=== PATIENT | male | born 1955 | race Caucasian/White ===

== ENCOUNTER 2023-01-06 08:44 | Inpatient (IN) ==
--- NOTE | 2023-01-06 09:12 | XRay Report ---
XR chest 1V portable HISTORY: 67 years-old Male Chest pain, nonspecific COMPARISON: 12/17/2022 TECHNIQUE: AP view of the chest FINDINGS: Cardiomegaly. Emphysema with chronic interstitial coarsening. Left lung lesions measuring up to 3.4 c m within the left upper lung are redemonstrated. No pneumothorax, pleural effusion or overt pulmonary edema. Degenerative changes of the shoulders and spine. Right subclavian Gxnrik-d-Kbow catheter. IMPRESSION: 1. No acute process of the chest. 2. Emphysema with chronic interstitial coarsening. 3. Left lung lesions are better depicted on the comparison PET/CT. ACT 112: Negative or not required by law. The above report was generated using voice recognition software. It may contain grammatical, syntax o r spelling errors. Electronically signed by: Luis Carlos Magallon M.D. 01/06/2023 9:10 AM
[2023-01-06] MEDS ORDERED: SODIUM CHLORIDE 0.9% 500 ML IV ONE (09:23)
[2023-01-06 09:31] LABS: Basophils # (auto) 0.06 K/uL (0-0.2); Basophils % (auto) 0.6 %; Eosinophils % (auto) 3.9 %; Hemoglobin 10.9 g/dl (14.0-18.0); Immature Granulocytes # (auto) 0.07 K/uL (0.01-0.20); Immature Granulocytes % (auto) 0.7 %; Lymphocytes # (auto) 0.81 K/uL (1.2-3.4); Lymphocytes % (auto) 7.8 %; Mean Corpuscular Volume 87.8 fL (80.0-100.0); Mean Platelet Volume 10.7 fL (9.4-12.4); Monocytes # (auto) 0.88 K/uL (0.11-0.59); Monocytes % (auto) 8.5 %; Neutrophils % (auto) 78.5 %; Platelet Count 276 K/uL (130-400); RDW Coefficient of Variation 13.6 % (11.5-14.5); RDW Standard Deviation 43.8 fL (36.4-46.3); Red Blood Count 3.76 M/uL (4.70-6.10); White Blood Count 10.32 K/ul (4.8-10.8)
--- NOTE | 2023-01-06 09:31 | Emergency Department Note ---
Impression & Plan Bradycardia, Hypomagnesemia, Anemia ED Provider Note NAME: KEVIN OVALLE AGE: 67 SEX: M : 1955 ARRIVES VIA: Walk-In INFORMANT: Patient, ED PROVIDER(S): Delfino Manzo DO CHIEF COMPLAINT: bradycardia HPI: The patient is a 67-year-old male who presented to the emergency department for an evaluation of low pulse rate and low blood pressure. The patient was scheduled for an outpatient biopsy of his kidney today. While he was at IR he was noted to have low pulse rate and low blood pressure. The patient was sent to the emergency department for further evaluation. He was started on some pain medications recently but otherwise no new medications or no changes to his chronic medications. ROS: See above HPI for pertinent positives & negatives. A total of 10 systems reviewed and were otherwise negative. The patient is a 67-year-old male who presented to the emergency department for an evaluation of slow heart rate. The patient was scheduled for a PAST MEDICAL HISTORY: See Below PAST SURGICAL HISTORY: See Below FAMILY HISTORY: See Below SOCIAL HISTORY: See Below HOME MEDICATIONS: See Below ALLERGIES: See Below VITALS: See Below PHYSICAL EXAMINATION: GENERAL: Patient is awake alert in no acute distress patient is resting comfortably and showing no signs of anxiety EYES: The conjunctivae are clear. The pupils are round and reactive. EARS, NOSE, MOUTH AND THROAT: The nose is without any evidence of any deformity. NECK: The neck is nontender and supple. RESPIRATORY: Normal respiratory effort is noted there is no evidence of wheezing rhonchi or rales CARDIOVASCULAR: Bradycardic and regular heart sounds were noted to auscultation. There is no definite murmur. GASTROINTESTINAL: The abdomen is soft. Abdomen is nontender. MUSCULOSKELETAL/EXTREMITIES: There is no evidence of gross deformity full range of motion is noted in the hips and shoulders. SKIN: Skin was warm and dry. Trace pedal edema was noted bilaterally. NEUROLOGIC: Patient is awake alert and oriented x3 MEDICAL DECISION MAKING: The patient is a 67-year-old male who presented to the emergency department from radiology because of low heart rate. The patient was scheduled for renal biopsy. This was held because the patient's vital signs were unstable. He was noted to have low blood pressure as well as low pulse rate. The patient had monitor strips with him when he arrived. He did have a couple episodes where it looked like he could be in a second-degree block. Mostly he was sinus bradycardia. I discussed the patient's laboratory and radiographic studies with him. He was treated with magnesium replacement. Ultimately the patient did not have significant improvement of his pulse rate he did have some episodes where he would Kump in the 60s but he would keep dropping down in the 40s again. I am concerned this could represent an underlying cardiac issue. For this reason I discussed his condition with the on-call [facility] group. They have agreed to evaluate the patient in the emergency department for further management and disposition. Triage Nursing notes reviewed. Prior medical records reviewed Vital Signs: reviewed and remarkable for bradycardia and initial hypotension. Differential diagnosis: Infection, dehydration, metabolic abnormality, hypo/hyperglycemia, electrolyte disturbance, anemia, hypoxia, cardiac sources, intracerebral event, toxicologic, neurologic, as well as other pathologies. ER treatment provided: See below Diagnostics interpreted by me: ECG: EKG was obtained in the emergency department. My interpretation is sinus bradycardia at 45 bpm. PACs were noted. No acute ST segment abnormalities were noted. Low voltage was noted. This was compared to a tracing from December 09, 2022. The rate has slowed however no significant changes were noted otherwise. Cardiac Monitoring: An order was placed for continuous cardiac monitoring. The monitor shows a rate of 43 bpm with sinus bradycardia. Laboratory studies: As stated above and show below. Imaging studies: See below. Radiographic imaging was reviewed by myself Consultation(s): I discussed this case with Melissa who is on-call for the [facility] group. Past Med/Surg History Medical History COPD (chronic obstructive pulmonary disease) COVID-19 Elevated cholesterol Emphysema/COPD Lung cancer Surgical History Hx of appendectomy 1968 Family History Mother Alzheimer disease Diabetes Father Lung disease Emphysema and black lung Social History Smoking Status: Current every day smoker Tobacco Type: Cigarettes Age Started Using Tobacco: 13; packs per day: 5; Cigarettes Per Day: currently 8 cigarettes per day; Hx Alcohol Use: Yes Alcohol type: hard liquor Alcohol Intake Frequency: 4 or More x per/Week Alcohol Intake Frequency Comment: each evening Hx Substance Use: No Preferred Language: Latvian Communication Ability: Effective Visual Impairment: Partially Limited Hearing Ability: Normal Asbestos Cloth Inspector Required: No Beliefs That Will Affect Care: None Current Living Situation: Spouse Current Living Situation Comment: has a home in [place], will be staying with SO during treatment current occupational status: retired 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 100 mcg-umeclid 1 inh inhalation DAILY 07/08/22 01/06/23 62.5 mcg-vilant 25 mcg inhalat.powder (Trelegy Ellipta) tamsulosin 0.4 mg capsule (Flomax) 0.4 mg PO DAILY 07/08/22 01/06/23 aspirin 81 mg tablet,delayed 81 mg PO DAILY 12/09/22 01/06/23 release atorvastatin 40 mg tablet 40 mg PO QAM 12/09/22 01/06/23 sildenafil 50 mg tablet 50 mg PO DIRECTED PRN Erectile 12/09/22 01/06/23 Dysfunction fentanyl 25 mcg/hr transdermal 25 mcg transdermal Q72H 01/06/23 01/06/23 patch Previous Rx's Medication Instructions Recorded oxycodone-acetaminophen 5 mg-325 1 tab PO Q6H PRN pain #14 tabs 12/09/22 mg tablet (Percocet) Results & Data (ED) Vital Signs Vital Signs - 24 hr 01/06/23 08:52 01/06/23 09:10 01/06/23 09:10 Temperature 36.4 C L Temperature Source Temporal Artery Scan Pulse Rate 51 L 46 L Pulse Rate [Right Finger] Pulse Rhythm Regular Regular Pulse Strength Normal Respiratory Rate 18 20 Respiratory Effort / Characteristics Non-Labored Spontaneous Respiratory Depth Normal Respiratory Pattern Regular Blood Pressure 99/54 L Blood Pressure [Right Arm] Blood Pressure Mean 69 Blood Pressure Mean [Right Arm] Blood Pressure Position Sitting Pulse Oximetry 97 96 Oxygen Delivery Method Room Air Room Air Room Air Sepsis Recent Fever Within 48 Hours No Sepsis New/Unexplained Change in Mental Status No Sepsis Action Taken by Nursing No Action Required 01/06/23 09:25 01/06/23 09:56 01/06/23 09:59 Temperature Temperature Source Pulse Rate 49 L Pulse Rate [Right Finger] 48 L Pulse Rhythm Pulse Strength Respiratory Rate 22 Respiratory Effort / Characteristics Non-Labored Respiratory Depth Normal Respiratory Pattern Blood Pressure Blood Pressure [Right Arm] 119/60 Blood Pressure Mean Blood Pressure Mean [Right Arm] 79 Blood Pressure Position Pulse Oximetry 96 Oxygen Delivery Method Room Air Room Air Sepsis Recent Fever Within 48 Hours Sepsis New/Unexplained Change in Mental Status Sepsis Action Taken by Nursing 01/06/23 10:44 01/06/23 11:12 01/06/23 11:12 Temperature Temperature Source Pulse Rate 43 L Pulse Rate [Right Finger] 43 L Pulse Rhythm Pulse Strength Respiratory Rate Respiratory Effort / Characteristics Respiratory Depth Respiratory Pattern Blood Pressure Blood Pressure [Right Arm] Blood Pressure Mean Blood Pressure Mean [Right Arm] Blood Pressure Position Pulse Oximetry 95 Oxygen Delivery Method Room Air Room Air Sepsis Recent Fever Within 48 Hours Sepsis New/Unexplained Change in Mental Status Sepsis Action Taken by [facility] Medications Current Medication List: was personally reviewed by me Laboratory Data Attestation: I reviewed the patient's lab results. 01/06/23 09:05 01/06/23 09:05 Lab Results 01/06/23 01/06/23 01/06/23 Range/Units 09:05 09:05 09:05 WBC 10.32 (4.8-10.8) K/ul RBC 3.76 L (4.70-6.10) M/uL Hgb 10.9 L (14.0-18.0) g/dl Hct 33.0 L (42.0-52.0) % MCV 87.8 (80.0-100.0) fL MCH 29.0 (25.0-34.0) pg MCHC 33.0 (32.0-36.0) g/dL RDW Std Deviation 43.8 (36.4-46.3) fL RDW Coeff of Adrian 13.6 (11.5-14.5) % Plt Count 276 (130-400) K/uL MPV 10.7 (9.4-12.4) fL Immature Gran % (Auto) 0.7 % Neut % (Auto) 78.5 % Lymph % (Auto) 7.8 % [place] % (Auto) 8.5 % Eos % (Auto) 3.9 % Baso % (Auto) 0.6 % Neut # (Auto) 8.10 H (1.40-6.50) K/uL Lymph # (Auto) 0.81 L (1.2-3.4) K/uL [place] # (Auto) 0.88 H (0.11-0.59) K/uL Eos # (Auto) 0.40 (0-0.50) K/uL Baso # (Auto) 0.06 (0-0.2) K/uL Immature Gran # (Auto) 0.07 (0.01-0.20) K/uL Sodium 134 L (136-145) mmol/L Potassium 3.8 (3.5-5.1) mmol/L Chloride 100 (98-107) mmol/L Carbon Dioxide 29 (21-32) mmol/L Anion Gap 5 (3-11) BUN 16 (6-23) mg/dl Creatinine 0.97 (0.6-1.4) mg/dl Est Cr Clr Drug Dosing 75.0 ml/min Est GFR ( Amer) 93.9 ml/min Est GFR (Non-Af Amer) 81.0 ml/min BUN/Creatinine Ratio 16.5 (10-20) Glucose 104 H (70-99(Fasting)) mg/dl Calcium 11.9 H (8.6-10.3) mg/dl Magnesium 1.6 L (1.7-2.4) mg/dl Total Bilirubin 0.4 (0.2-1.0) mg/dl AST 16 (13-39) U/L ALT 9 (7-52) U/L Alkaline Phosphatase 94 (34-104) U/L Troponin I High Sens 6.1 (0-20) pg/ml Total Protein 6.6 (6.0-8.3) gm/dl Albumin 3.5 (3.4-5.0) gm/dl Globulin 3.1 (2.5-4.0) gm/dl Albumin/Globulin Ratio 1.1 (0.9-2) Lipase 9 L (11-82) U/L Procalcitonin (0-0.5) ng/ml TSH 1.115 (0.300-4.500) uIu/ml Lyme Disease IgG Ab (Negative) Lyme Disease IgM Ab (Negative) 01/06/23 01/06/23 Range/Units 09:05 09:29 WBC (4.8-10.8) K/ul RBC (4.70-6.10) M/uL Hgb (14.0-18.0) g/dl Hct (42.0-52.0) % MCV (80.0-100.0) fL MCH (25.0-34.0) pg MCHC (32.0-36.0) g/dL RDW Std Deviation (36.4-46.3) fL RDW Coeff of Adrian (11.5-14.5) % Plt Count (130-400) K/uL MPV (9.4-12.4) fL Immature Gran % (Auto) % Neut % (Auto) % Lymph % (Auto) % [place] % (Auto) % Eos % (Auto) % Baso % (Auto) % Neut # (Auto) (1.40-6.50) K/uL Lymph # (Auto) (1.2-3.4) K/uL [place] # (Auto) (0.11-0.59) K/uL Eos # (Auto) (0-0.50) K/uL Baso # (Auto) (0-0.2) K/uL Immature Gran # (Auto) (0.01-0.20) K/uL Sodium (136-145) mmol/L Potassium (3.5-5.1) mmol/L Chloride (98-107) mmol/L Carbon Dioxide (21-32) mmol/L Anion Gap (3-11) BUN (6-23) mg/dl Creatinine (0.6-1.4) mg/dl Est Cr Clr Drug Dosing ml/min Est GFR ( Amer) ml/min Est GFR (Non-Af Amer) ml/min BUN/Creatinine Ratio (10-20) Glucose (70-99(Fasting)) mg/dl Calcium (8.6-10.3) mg/dl Magnesium (1.7-2.4) mg/dl Total Bilirubin (0.2-1.0) mg/dl AST (13-39) U/L ALT (7-52) U/L Alkaline Phosphatase (34-104) U/L Troponin I High Sens (0-20) pg/ml Total Protein (6.0-8.3) gm/dl Albumin (3.4-5.0) gm/dl Globulin (2.5-4.0) gm/dl Albumin/Globulin Ratio (0.9-2) Lipase (11-82) U/L Procalcitonin < 0.05 (0-0.5) ng/ml TSH (0.300-4.500) uIu/ml Lyme Disease IgG Ab Negative (Negative) Lyme Disease IgM Ab Negative (Negative) Administered Medications Discontinued Medications Sodium Chloride (Nss) 500 mls @ 999 mls/hr IV .Q31M ONE Stop: 01/06/23 09:53 Last Infusion: 01/06/23 11:36 Dose: 0 mls/hr Documented By: Admin: 01/06/23 10:00 Dose: 999 mls/hr Documented By: CELINE Magnesium Sulfate/Dextrose (Magnesium Sulfate / D5w) 1 gm in 100 mls @ 100 mls/hr IV NOW STA Stop: 01/06/23 11:16 Last Infusion: 01/06/23 11:36 Dose: 0 mls/hr Documented By: Admin: 01/06/23 10:35 Dose: 100 mls/hr Documented By: CELINE Magnesium Oxide (Magnesium Oxide 400 Mg Tab) 400 mg PO ONE ONE Stop: 01/06/23 10:18 Last Admin: 01/06/23 10:35 Dose: 400 mg Documented By: CELINE Imaging Data Attestation: I personally reviewed and interpreted this imaging study as follows: My Impression: 1 view chest x-ray was obtained in the emergency department. My interpretation is no free air or definite infiltrate, final report below. Radiologist's Impression: Chest X-Ray 01/06/23 08:57 XR chest 1V portable HISTORY: 67 years-old Male Chest pain, nonspecific COMPARISON: 12/17/2022 TECHNIQUE: AP view of the chest FINDINGS: Cardiomegaly. Emphysema with chronic interstitial coarsening. Left lung lesions measuring up to 3.4 cm within the left upper lung are redemonstrated. No pneumothorax, pleural effusion or overt pulmonary edema. Degenerative changes of the shoulders and spine. Right subclavian Eieffk-m-Cmke catheter. IMPRESSION: 1. No acute process of the chest. 2. Emphysema with chronic interstitial coarsening. 3. Left lung lesions are better depicted on the comparison PET/CT. ACT 112: Negative or not required by law. The above report was generated using voice recognition software. It may contain grammatical, syntax or spelling errors. Electronically signed by: Luis Carlos Magallon M.D. 01/06/2023 9:10 AM Discharge Plan Visit Data Chief Complaint: Bradycardia Stated Complaint: HYPOTENSION ED Provider: Delfino Manzo Discharge Problem: Bradycardia, Hypomagnesemia, Anemia Patient Disposition: Being Evaluated by Hospitalist Forms [facility] Pres[facility] Prescriptions: No Action escitalopram oxalate [Lexapro] 20 mg tablet 20 mg PO DAILY tamsulosin [Flomax] 0.4 mg capsule 0.4 mg PO DAILY Trelegy Ellipta 100-62.5-25 mcg blister with device 1 inh inhalation DAILY albuterol sulfate 90 mcg/actuation HFA aerosol inhaler 2 puff inhalation Q6H PRN (Reason: Shortness Of Breath Or Wheezing) atorvastatin 40 mg tablet 40 mg PO QAM aspirin 81 mg Tablet,Delayed Release (Dr/Ec) 81 mg PO DAILY sildenafil 50 mg tablet 50 mg PO DIRECTED PRN (Reason: Erectile Dysfunction) oxycodone-acetaminophen [Percocet] 5-325 mg tablet 1 tab PO Q6H PRN (Reason: pain) Qty: 14 0RF fentanyl 25 mcg/hr patch 72 hour 25 mcg transdermal Q72H Rx Instructions: right side of chest Referrals Referrals: Larissa Aparicio MD [Primary Care Provider] -
[2023-01-06 09:46] LABS: Albumin Globulin Ratio 1.1 (0.9-2); Albumin Level 3.5 gm/dl (3.4-5.0); BUN Creatinine Ratio 16.5 (10-20); Bilirubin,Total 0.4 mg/dl (0.2-1.0); Calcium 11.9 mg/dl (8.6-10.3); Est GFR (African American) 93.9 ml/min; Globulin 3.1 gm/dl (2.5-4.0); Magnesium 1.6 mg/dl (1.7-2.4); Potassium 3.8 mmol/L (3.5-5.1); Total Protein 6.6 gm/dl (6.0-8.3)
[2023-01-06 09:52] LABS: Troponin I High Sensitivity 6.1 pg/ml (0-20)
[2023-01-06] MEDS ORDERED: MAGNESIUM SULFATE / D5W 1 GM/100 ML BAG IV STA (10:17)
[2023-01-06] MEDS ORDERED: MAGNESIUM OXIDE 400 MG TAB PO ONE (10:17)
[2023-01-06 10:30] LABS: Lyme Ab IgG w/WB Rflx Negative (Negative); Lyme Ab IgM w/WB Rflx Negative (Negative)
[2023-01-06] MEDS ORDERED: ALUMINUM/MAGNESIUM SUSP 30 ML UDC PO PRN (11:12)
[2023-01-06] MEDS ORDERED: MAGNESIUM HYDROXIDE SUSP 30 ML UDC PO PRN (11:12)
[2023-01-06] MEDS ORDERED: POLYETHYLENE (MIRALAX) 17 GM PACK PO PRN (11:12)
--- NOTE | 2023-01-06 11:21 | History & Physical Report ---
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 Incidentally found to be kwadwo in the 40-50 range, completely asymptomatic. 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 Initial PET scan was 05/05/2022 with concerns for malignancy. Originally taking weekly paclitaxil and carboplatin + radiation and then continued with maintenance durvalumab until two weeks ago. Follows with Dr. Mccoy and Dr. Ochoa. Has responded well to durvalumab; however, this has been on hold for past two weeks due to recent PET results with disease progression. Per review of outpatient records; patient not a good candidate for surgery. Future treatment option plans were to be held at upcoming appointment in coming weeks. He had a brain MRI 05/28/22 negative for metastatic disease. Patient did see Palliative Medicine on 05/03/23 and was started on Percocet and Fentanyl two weeks ago. No leukocytosis, Mg+1.6; replace with 1 g in ED. does not appear toxic. Lyme negative, procalcitonin negative, troponin negative. No signs of anemia or active bleeding. Normotensive. Conditional Code (ok for cardioversion and ACLS drugs/ No CPR or intubation/ ok for Bipap) Pt willing to rule out any organic causes; but do suspect related to pain medications; as patient was opioid naive prior to two weeks ago; will reduce Fentanyl dosing to 12 mcg TD for re-evaluation and affect on HR; of course being mindful of pain level. Current pain level 1/10, which increased in his left flank during ambulation to the bathroom to 4/10. Incidental finding HR 40-50. ECHO ordered. Cardiology and continuation of Palliative Medicine consult. Bradycardia: Incidental finding HR 40-50. 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 Immunotherapy on hold past two weeks; planned for future treatment option d iscussion over next few weeks. Not good candidate for surgery per review of outpatient records Follows with Dr. Ochoa Radiation Oncology every 6 months PET scan done 12/14 showing progression of illness Cancer-related pain: Related to lung SCC Started Fentanyl and Percocet two weeks ago; suspect related to bradycardia Patient was opioid naive prior to two weeks ago; will reduce Fentanyl dosing to 12 mcg TD for re-evaluation and affect on HR; of course being mindful of pain level. Current pain level 4/10 in left flank. COPD: Tobacco Abuse: Current active smoker down to 1 PPD from 5 PPD; greater than [id number] history Started smoking at 13 years old Nicotine patch ordered Advance care planning counseling discussion: Previous encounter with Palliative Medicine; appreciate of their information Lengthy conversation held with patient regarding how his emotional state is and if he has had any time to reflect on previous palliative converstations. He said he keeps feeling like he is in and out of the hospital and just wants to 'let things ride' how they are supposed to. We had a lengthy conversation about his code status, especially given the light of his current presentation with bradycardia. He said he would not like to be resuscitated in the event of cardiac or respiratory arrest. He is receptive to ACLS medications and is receptive to having Cardiology insight regarding causes and if there are any treatments. He is eager to continue with treatment so do not think patient is ready for Hospice at this time, but he is receptive to further palliative medicine conversations throughout his admission. Patient certainly would qualify for hospice under the diagnosis of Lung Cancer. Pt willing to rule out any organic causes; but do suspect related to pain medications; as patient was opioid naive prior to two weeks ago; will reduce Fentanyl dosing to 12 mcg TD for re-evaluation and affect on HR; of course being mindful of pain level. Current pain level 4/10 after ambulation. Disposition: PCP: Dr. Aparicio CODE STATUS: Conditional Code; ok for ACLS drugs VTE prophylaxis: Teds/SCDs for now I spent a total of 88 minutes coordinating, documenting, and providing care for this patient excluding time spent in the performance of separately billed services. All of the aforementioned completed while collaborating with the assigned attending physician for a full treatment plan. Please see their addendum for further details. History of Present Illness Chief Complaint: bradycardia Primary Care Provider: Larissa Aparicio MD Mr. Harrison is a 67 year old male that presents to the [facility] ED from IR where he was planned to undergo a renal biopsy of his left kidney for a recently identified mass on his PET scan from the end of November. While in IR, he was incidentally found to be bradycardic in the 40-50 range, completely asymptomatic. 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 Initial PET scan was 05/05/2022 with concerns for malignancy. 05/22/2022: Dr. Thorne provided staging: T4 N3 M0. Stage IIIC. He originally received weekly paclitaxil and carboplatin + radiation and then continued with maintenance durvalumab until two weeks ago. Follows with Dr. Mccoy and Dr. Ochoa. Has responded well to durvalumab; however, this has been on hold for past two weeks due to recent PET results with disease progression. Per review of outpatient records; patient not a good candidate for surgery. Future treatment option plans were to be held at upcoming appointment in coming weeks. He had a brain MRI 05/28/22 negative for metastatic disease. Patient did see Palliative Medicine on 05/03/23. No leukocytosis, Mg+1.6; replace with 1 g in ED. does not appear toxic. Lyme negative, procalcitonin negative, troponin negative. No signs of anemia or active bleeding. Normotensive. Lengthy conversation today held with patient regarding how his emotional state is and if he has had any time to reflect on previous palliative conversations. H kavita said he keeps feeling like he is in and out of the hospital and just wants to 'let things ride' how they are supposed to. We had a lengthy conversation about his code status, especially given the light of his current presentation with bradycardia. He said he would not like to be resuscitated in the event of cardiac or respiratory arrest. He is receptive to ACLS medications and is receptive to having Cardiology insight regarding causes and if there are any treatments. He is eager to continue with treatment so do not think patient is ready for Hospice at this time, but he is receptive to further palliative medicine conversations throughout his admission. Patient certainly would qualify for hospice under the diagnosis of Lung Cancer. Pt willing to rule out any organic causes; but do suspect related to pain medications; as patient was opioid naive prior to two weeks ago; will reduce Fentanyl dosing to 12 mcg TD for re-evaluation and affect on HR; of course being mindful of pain level. Cu rrent pain level 1/10, which increased in his left flank during ambulation to the bathroom to 4/10. Pt denies EDWARDS, SOB, chest pain, palpitations, N/V/D, urine or bowel changes, recent falls or trauma. Reports poor appetite which is unchanged. Pt sitting in his hospital bed AAOx4 with his at bedside in no apparent distress; he is able to speak in complete sentences on RA. SB on monitor with PAC's. Abdomen S/NT/ND. Euvolemic on exam. Incidental finding HR 40-50. Asymptomatic; Suspect related to starting Fentanyl and Percocet a few weeks ago and previously opioid-naive. ECG: SB; will repeat ECG to rule out any AVB. Confirmed Conditional Code; ok with ACLS drugs and cardioversion. ECHO ordered. Cardiology and continuation of Palliative Medicine consult. Pt will be admitted for further evaluation and management. Please see A/P for further details. Allergies Allergy/AdvReac Type Severity Reaction Status Date / Time No Known Allergies Allergy Verified 12/09/22 20:44 Home Medications Medication Instructions Recorded Confirmed Type albuterol sulfate 90 mcg/actuation 2 puff inhalation Q6H PRN 07/08/22 01/06/23 History aerosol inhaler Shortness Of Breath Or Wheezing escitalopram oxalate 20 mg tablet 20 mg PO DAILY 07/08/22 01/06/23 History (Lexapro) fluticasone fur. 100 mcg-umeclid 1 inh inhalation DAILY 07/08/22 01/06/23 History 62.5 mcg-vilant 25 mcg inhalat.powder (Trelegy Ellipta) tamsulosin 0.4 mg capsule (Flomax) 0.4 mg PO DAILY 07/08/22 01/06/23 History aspirin 81 mg tablet,delayed 81 mg PO DAILY 12/09/22 01/06/23 History release atorvastatin 40 mg tablet 40 mg PO QAM 12/09/22 01/06/23 History oxycodone-acetaminophen 5 mg-325 1 tab PO Q6H PRN pain #14 tabs 12/09/22 01/06/23 Rx mg tablet (Percocet) sildenafil 50 mg tablet 50 mg PO DIRECTED PRN Erectile 12/09/22 01/06/23 History Dysfunction fentanyl 25 mcg/hr transdermal 25 mcg transdermal Q72H 01/06/23 01/06/23 History patch Past Med/Surg History Medical History COPD (chronic obstructive pulmonary disease) COVID-19 Elevated cholesterol Emphysema/COPD Lung cancer Surgical History Hx of appendectomy 1968 Family History Mother Alzheimer disease Diabetes Father Lung disease Emphysema and black lung Social History Smoking Status: Current every day smoker Tobacco Type: Cigarettes Age Started Using Tobacco: 13; packs per day: 5; Cigarettes Per Day: currently 8 cigarettes per day; Hx Alcohol Use: Yes Alcohol type: hard liquor Alcohol Intake Frequency: 4 or More x per/Week Alcohol Intake Frequency Comment: each evening Hx Substance Use: No Preferred Language: Ethiopian Communication Ability: Effective Visual Impairment: Partially Limited Hearing Ability: Normal Gis Analyst Developer Required: No Beliefs That Will Affect Care: None Current Living Situation: Spouse Current Living Situation Comment: has a home in [place], will be staying with SO during treatment 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 Feels Safe at Home: Yes caffeine: Yes during the past year weight has: remained stable Dental Care, Regularly: No Assistive Devices: Denture - Upper, Denture - Lower and Glasses Review of Systems Review of Systems: Neuro: (-) Falls, trauma, slurred speech HEENT: (-) EDWARDS, dizziness, dysphagia, visual or auditory changes CV: (-) CP, palpitations, swelling Resp: (-) SOB GI: (-) appetite changes, N/V/D, bowel changes : (-) urinary changes Skin: (-) rashes Psych: (-) anxiety, depression Physical Exam Physical Exam: Neuro: AAOx4, PERRLA, no aphagia, memory changes, CNII-XII grossly intact HEENT: head normocephalic, moist mucus membranes CV: S1/S2, (-) M/G/R, (-) edema, cap refill < 3 seconds Resp: Lungs CTA in all rogers. On RA GI: Abdomen S/NT/ND, Ax4 bowel sounds, (-) CVA tenderness Musculoskeletal: 5/5 B/L UE strength, 5/5 B/L LE strength. No gait disturbance Skin: (-) rashes , (-) erythema. Psych: euthymic mood Results & Data Results & Data Vital Signs (Past 12 Hours) Vital Signs Temp Pulse Pulse Resp BP BP Pulse Ox 01/06/23 10:44 01/06/23 09:59 01/06/23 09:56 48 L 22 119/60 96 01/06/23 09:25 49 L 01/06/23 09:10 46 L 20 96 01/06/23 09:10 01/06/23 08:52 36.4 C L 51 L 18 99/54 L 97 O2 Del Method 01/06/23 10:44 Room Air 01/06/23 09:59 Room Air 01/06/23 09:56 Room Air 01/06/23 09:25 01/06/23 09:10 Room Air 01/06/23 09:10 Room Air 01/06/23 08:52 Room Air Laboratory Results Short CBC 01/06/23 Range/Units 09:05 WBC 10.32 (4.8-10.8) K/ul Hgb 10.9 L (14.0-18.0) g/dl Hct 33.0 L (42.0-52.0) % Plt Count 276 (130-400) K/uL BMP 01/06/23 09:05 Sodium 134 L Potassium 3.8 Chloride 100 Carbon Dioxide 29 BUN 16 Creatinine 0.97 Glucose 104 H Calcium 11.9 H Liver Function 01/06/23 Range/Units 09:05 Total Bilirubin 0.4 (0.2-1.0) mg/dl AST 16 (13-39) U/L ALT 9 (7-52) U/L Alkaline Phosphatase 94 (34-104) U/L Albumin 3.5 (3.4-5.0) gm/dl Diagnostic Findings Chest X-Ray 01/06/23 08:57 XR chest 1V portable HISTORY: 67 years-old Male Chest pain, nonspecific COMPARISON: 12/17/2022 TECHNIQUE: AP view of the chest FINDINGS: Cardiomegaly. Emphysema with chronic interstitial coarsening. Left lung lesions measuring up to 3.4 cm within the left upper lung are redemonstrated. No pneumothorax, pleural effusion or overt pulmonary edema. Degenerative changes of the shoulders and spine. Right subclavian [id number] catheter. IMPRESSION: 1. No acute process of the chest. 2. Emphysema with chronic interstitial coarsening. 3. Left lung lesions are better depicted on the comparison PET/CT. ACT 112: Negative or not required by law. The above report was generated using voice recognition software. It may contain grammatical, syntax or spelling errors. Electronically signed by: Luis Carlos Magallon M.D. 01/06/2023 9:10 AM Code Status & VTE Plan Code Status Full Code in the event of cardiac or respiratory arrest VTE Prophylaxis Plan VTE Prophylaxis will be ordered: Yes Supervising Physician Co-Signing Physician Notes Pt seen and examined by myself, Danielle Mortensen MD on the day of service. Care was coordinated with JOSUE Singh. Please refer to her note for additional information. 67yoM with PMHx significant for lung cancer currently following with Palliative Care admitted with bradycardia. Resting comfortably on exam, denies chest pain or palpitations but does note a chronic hx of dizziness when he is up and moving. Heart rate regular, no pedal edema. Suspect bradycardia related to recent narcotics, will hold home Percocet and decrease dose of fentanyl to 12mcg (down from 25mcg) with close monitoring of pain level. Can slowly titrate back up. Telemetry monitoring, crash cart and pads available, pt with conditional code- does not want CPR or ventilation assistance but agreeable to cardioversion/shocking and ACLS medications. Otherwise as above.
[2023-01-06] MEDS ORDERED: ALBUTEROL HFA 8 GM INHALER INH PRN (12:19)
[2023-01-06] MEDS ORDERED: ATROPINE SULFATE 0.1 MG/ML 10ML SYR IV PRN (13:41)
[2023-01-06] MEDS: NICOTINE 14 MG/24 HR PATCH TD SCH (14:28)
[2023-01-06] MEDS ORDERED: fentaNYL 12 MCG/HR TDSY TD SCH (16:00)
--- NOTE | 2023-01-06 16:05 | Electrocardiogram Report ---
Test Reason : Blood Pressure : / mmHG Vent. Rate : 045 BPM Atrial Rate : 045 BPM P-R Int : 130 ms QRS Dur : 086 ms QT Int : 444 ms P-R-T Axes : 042 -44 057 degrees QTc Int : 384 ms Sinus bradycardia with Premature atrial complexes Left axis deviation Low voltage QRS Cannot rule out Inferior infarct (cited on or before 09-DEC-2022) Cannot rule out Anterior infarct (cited on or before 09-DEC-2022) Abnormal ECG When compared with ECG of 09-DEC-2022 18:06, Vent. rate has decreased BY 24 BPM Confirmed by Delfino Hart ([id number]) on 01/06/2023 4:04:42 PM Referred By: REFERRED SELF Confirmed By:Delfino Hart
[2023-01-06] MEDS: CHECK fentaNYL PATCH PLACEMENT SCH ×2 (16:09→21:13)
--- NOTE | 2023-01-06 16:13 | Electrocardiogram Report ---
Test Reason : Blood Pressure : / mmHG Vent. Rate : 052 BPM Atrial Rate : 052 BPM P-R Int : 116 ms QRS Dur : 096 ms QT Int : 448 ms P-R-T Axes : 040 -41 054 degrees QTc Int : 416 ms Sinus bradycardia with marked sinus arrhythmia Left axis deviation Low voltage QRS Inferior infarct (cited on or before 09-DEC-2022) Abnormal ECG When compared with ECG of 06-JAN-2023 09:03, (unconfirmed) Premature atrial complexes are no longer Present Confirmed by Delfino Hart ([id number]) on 01/06/2023 4:12:40 PM Referred By: REFERRED SELF Confirmed By:Delfino Hart
[2023-01-06] MEDS: ACETAMINOPHEN 325 MG TAB PO PRN (21:22)
[2023-01-07 07:09] LABS: Hematocrit (blood only) 33.4 % (42.0-52.0); Hemoglobin 11.2 g/dl (14.0-18.0); Mean Corpuscular Hemoglobin 28.9 pg (25.0-34.0); Mean Corpuscular Hgb Conc 33.5 g/dL (32.0-36.0); Mean Corpuscular Volume 86.3 fL (80.0-100.0); Mean Platelet Volume 10.7 fL (9.4-12.4); Platelet Count 273 K/uL (130-400); RDW Coefficient of Variation 13.6 % (11.5-14.5); RDW Standard Deviation 42.5 fL (36.4-46.3); Red Blood Count 3.87 M/uL (4.70-6.10); White Blood Count 11.07 K/ul (4.8-10.8)
[2023-01-07 07:27] LABS: Albumin Globulin Ratio 1.1 (0.9-2); Albumin Level 3.4 gm/dl (3.4-5.0); BUN Creatinine Ratio 17.5 (10-20); Bilirubin,Total 0.3 mg/dl (0.2-1.0); Calcium 11.7 mg/dl (8.6-10.3); Creatinine Clr Calc Pharmacy 90.7 ml/min; Est GFR (African American) 107.9 ml/min; Est GFR (Non-African American) 93.1 ml/min; Globulin 3.1 gm/dl (2.5-4.0); Magnesium 1.8 mg/dl (1.7-2.4); Total Protein 6.5 gm/dl (6.0-8.3)
--- NOTE | 2023-01-07 08:02 | Cardiology Consultation ---
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 Supervising Physician Co-Signing Physician Notes Attending Staff: Pt seen and evaluated with [facility] staff Concur with observations and plans 67 yo man presenting with bradycardia Pt with hx of Lung Cancer Noted to have a renal lesion - possible malignancy Presented for renal biopsy Pt noted ot be bradycardic Question of Mobitz II block Biopsy was aborted Patient was admitted for observation. Pt describes orthostatic symptoms No syncopal events On telemetry * sinus bradycardia * atrial bigeminy * No pauses * No asystole ECHOcardiogram: 01/06/2023 LVEF 55% No WMA reported Normal wall thickness Aortic Sclerosis without stenosis EK01/06/2023 Sinus bradycardia @ 50 BPM Possible Old IMI Low voltage in limb leads HI interval WNL QTC - WNL No ischemic changes Plans: 67 yo man with bradycardia No sx of syncope EKG with normal HI interval. No fascicular blocks or Bundle branch blocks No pauses on telemetry LV function -normal Low voltage in limb leads - normal LV thickness - amyloid less likely Lyme titers negative TSH - 1.1 Plrease keep K+ 4.5-5 Please keep Mag >2 Please walk patient and see if HR increase to ensure that he does not have chr onotropic insufficiency Consider sleep study as patient may have sleep disordered breathing. SBP near goal On Lipitor for hyperlipidemia No current cardiac findings would absolutely preclude renal bx Follow up with [facility] Cardiology Clint Butterfield History of Present Illness Reason for Consultation: Bradycardia Requesting Physician: Medicine Attending Physician: Rashawn Young MD History of Present Illness Patient is a 67-year-old male admitted to [facility] with findings of sinus bradycardia on telemetry. He was to have renal biopsy of his left kidney for a recently identified mass on his PET scan from the end of November. While in IR, he was incidentally found to be bradycardic in the 40-50 range, completely asymptomatic. He has a progressive stage III squamous cell carcinoma of the lung, originally diagnosed 04/29/2022 after bronchoscopy. Other history includes: 1. COPD/emphysema 2. Squamous cell lung CA, metastatic 3. Renal mass 4. Atorvastatin Patient was admitted for evaluation of bradycardia. At one point hospitalist thought he may have 2:1 heart block. Placed on telemetry overnight. View of telemetry overnight, sinus bradycardia noted with PAC's. He remains asymptomatic overnight. No dizziness or syncope or near syncope. No chest pain or SOB. Troponin negative. Lyme negative. Echo with preserved EF, no wall motion abnormalities. Allergies Allergy/AdvReac Type Severity Reaction Status Date / Time No Known Allergies Allergy Verified 12/09/22 20:44 Home Medications Medication Instructions Recorded Confirmed Type albuterol sulfate 90 mcg/actuation 2 puff inhalation Q6H PRN 07/08/22 01/06/23 History aerosol inhaler Shortness Of Breath Or Wheezing escitalopram oxalate 20 mg tablet 20 mg PO DAILY 07/08/22 01/06/23 History (Lexapro) fluticasone fur. 100 mcg-umeclid 1 inh inhalation DAILY 07/08/22 01/06/23 History 62.5 mcg-vilant 25 mcg inhalat.powder (Trelegy Ellipta) tamsulosin 0.4 mg capsule (Flomax) 0.4 mg PO DAILY 07/08/22 01/06/23 History aspirin 81 mg tablet,delayed 81 mg PO DAILY 12/09/22 01/06/23 History release atorvastatin 40 mg tablet 40 mg PO QAM 12/09/22 01/06/23 History oxycodone-acetaminophen 5 mg-325 1 tab PO Q6H PRN pain #14 tabs 12/09/22 01/06/23 Rx mg tablet (Percocet) sildenafil 50 mg tablet 50 mg PO DIRECTED PRN Erectile 12/09/22 01/06/23 History Dysfunction fentanyl 25 mcg/hr transdermal 25 mcg transdermal Q72H 01/06/23 01/06/23 History patch Patient History Medical History COPD (chronic obstructive pulmonary disease) COVID-19 Elevated cholesterol Emphysema/COPD Lung cancer Surgical History Hx of appendectomy 1968 Family History Mother Alzheimer disease Diabetes Father Lung disease Emphysema and black lung Social History Smoking Status: Current every day smoker Tobacco Type: Cigarettes Age Started Using Tobacco: 13; packs per day: 5; Cigarettes Per Day: 10-20; Second Hand Exposure: Yes; Tobacco Cessation Education Requested by Patient: No Hx Alcohol Use: Yes Alcohol type: beer Alcohol Intake Frequency: 4 or More x per/Week Alcohol Intake Frequency Comment: each evening Hx Substance Use: No Preferred Language: Syriac Communication Ability: Effective Visual Impairment: Partially Limited Hearing Ability: Normal Electric 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 Required: No Beliefs That Will Affect Care: None Current Living Situation: Significant Other Current Living Situation Comment: has a home in [place], will be staying with SO during treatment current occupational status: retired 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 Other Information That Helps Us Care for You: No Feels Safe at Home: Yes Safety Concerns: Feels Safe At This Time caffeine: Yes during the past year weight has: remained stable Dental Care, Regularly: No Assistive Devices: Cane Review of Systems Review of Systems: All systems reviewed & are unremarkable except as noted in HPI & below Physical Exam Physical Exam: Patient awake /alert and responsive No elevation in JVP S1S2 No murmurs CTA B No C/C/E Warm and perfusing Results & Data Vital Signs (Past 12 Hours) Vital Signs Temp Pulse Pulse Resp BP Pulse Ox O2 Del Method 01/07/23 07:19 65 01/07/23 03:02 37.0 C 69 20 134/70 95 Room Air 01/07/23 00:00 87 01/06/23 21:40 Room Air 01/06/23 23:21 36.9 C 70 18 139/68 94 Room Air Laboratory Results Cardiac Enzymes 01/06/23 01/07/23 Range/Units 09:05 06:44 AST 16 14 (13-39) U/L Troponin I High Sens 6.1 (0-20) pg/ml CBC 01/06/23 01/07/23 Range/Units 09:05 06:44 WBC 10.32 11.07 H (4.8-10.8) K/ul RBC 3.76 L 3.87 L (4.70-6.10) M/uL Hgb 10.9 L 11.2 L (14.0-18.0) g/dl Hct 33.0 L 33.4 L (42.0-52.0) % Plt Count 276 273 (130-400) K/uL Neut # (Auto) 8.10 H (1.40-6.50) K/uL Lymph # (Auto) 0.81 L (1.2-3.4) K/uL [place] # (Auto) 0.88 H (0.11-0.59) K/uL Eos # (Auto) 0.40 (0-0.50) K/uL Baso # (Auto) 0.06 (0-0.2) K/uL Comprehensive Metabolic Panel 01/06/23 01/07/23 Range/Units 09:05 06:44 Sodium 134 L 136 (136-145) mmol/L Potassium 3.8 4.0 (3.5-5.1) mmol/L Chloride 100 104 (98-107) mmol/L Carbon Dioxide 29 26 (21-32) mmol/L BUN 16 14 (6-23) mg/dl Creatinine 0.97 0.80 (0.6-1.4) mg/dl Glucose 104 H 97 (70-99(Fasting)) mg/dl Calcium 11.9 H 11.7 H (8.6-10.3) mg/dl AST 16 14 (13-39) U/L ALT 9 8 (7-52) U/L Alkaline Phosphatase 94 81 (34-104) U/L Total Protein 6.6 6.5 (6.0-8.3) gm/dl Albumin 3.5 3.4 (3.4-5.0) gm/dl Intake and Output 01/06/23 01/07/23 01/07/23 22:59 06:59 14:59 Intake Total 150 / 750 Balance 150 / 750 Intake: Oral 150 / 150 Other: Other Intake Source Patient is NPO # Unmeasured Voids 1 1 Weight 79.5 kg 79.1 kg Weight Measurement Method [facility] Diagnostic Findings Telemetry reviewed: Sinus bradycardia with PAC's. No pauses. No evidence of high degree AV block. Echo with normal LVEF, normal wall motion. no significant valvular disease. Medications Administered Current Inpatient Medications Acetaminophen (Acetaminophen 325 Mg Tab) 650 mg PO Q4H PRN PRN Reason: Pain or Fever Stop: 02/05/23 11:11 Last Admin: 01/06/23 21:22 Dose: 650 mg Al Hydrox/Mg Hydrox/Simethicone (Aluminum/Magnesium Susp 30 Ml Udc) 15 ml PO Q4H PRN PRN Reason: Dyspepsia Stop: 02/05/23 11:11 Albuterol (Albuterol Hfa 8 Gm Inhaler) 2 puffs INH Q6H PRN PRN Reason: Shortness Of Breath Or Wheezing Stop: 02/05/23 12:18 Aspirin (Aspirin 81 Mg Ectab) 81 mg PO DAILY [facility] Stop: 02/06/23 08:59 Atorvastatin Calcium (Atorvastatin 40 Mg Tab) 40 mg PO QAM [facility] Stop: 02/06/23 08:59 Atropine Sulfate (Atropine Sulfate 0.1 Mg/Ml 10ml Syr) 0.5 mg IV ONCE PRN PRN Reason: bradycardia Stop: 02/05/23 13:40 Escitalopram Oxalate (Escitalopram Oxalate 20 Mg Tab) 20 mg PO DAILY [facility] Stop: 02/06/23 08:59 Fentanyl (Fentanyl 12 Mcg/Hr Tdsy) 12 mcg TD Q3D [facility] Stop: 01/20/23 15:59 Last Admin: 01/06/23 16:07 Dose: 12 mcg Fluticasone Furoate (Fluticasone Furoate 100mcg 14 Puffs/Inhaler) 1 puffs INH DAILY [facility] Stop: 02/06/23 08:59 Magnesium Hydroxide (Magnesium Hydroxide Susp 30 Ml Udc) 30 ml PO Q12H PRN PRN Reason: Constipation Stop: 02/05/23 11:11 Miscellaneous (Remove Nicoderm Patch) 1 each N/A DAILY@0859 [facility] Stop: 02/06/23 08:58 Miscellaneous (Check Fentanyl Patch Placement) 1 each N/A QS [facility] Stop: 02/05/23 15:59 Last Admin: 01/06/23 21:13 Dose: 1 each Miscellaneous (Fentanyl Patch Remove & Waste) 1 each N/A Q3D [facility] Stop: 02/05/23 15:59 Last Admin: 01/06/23 16:09 Dose: 1 each Nicotine (Nicotine 14 Mg/24 Hr Patch) 14 mg TD QAM [facility] Stop: 02/05/23 12:14 Last Admin: 01/06/23 14:28 Dose: Not Given Polyethylene Glycol (Polyethylene (Miralax) 17 Gm Pack) 17 gm PO DAILY PRN PRN Reason: Constipation Stop: 02/05/23 11:11 Tamsulosin HCl (Tamsulosin Hcl 0.4 Mg Cap) 0.4 mg PO DAILY [facility] Stop: 02/06/23 08:59 Umeclidinium/Vilanterol (Umeclidinium/Vilanterol 62.5/25mcg 7 Puffs/Inhaler) 1 puffs INH DAILY IV[facility] Stop: 02/06/23 08:59
[2023-01-07] MEDS ORDERED: FLUTICASONE FUROATE 100MCG 14 PUFFS/INHALER INH SCH (09:00)
[2023-01-07] MEDS ORDERED: ASPIRIN 81 MG ECTAB PO SCH (09:00)
[2023-01-07] MEDS ORDERED: TAMSULOSIN HCL 0.4 MG CAP PO SCH (09:00)
[2023-01-07] MEDS ORDERED: ATORVASTATIN 40 MG TAB PO SCH (09:00)
[2023-01-07] MEDS ORDERED: UMECLIDINIUM/VILANTEROL 62.5/25MCG 7 PUFFS/INHALER INH SCH (09:00)
[2023-01-07] MEDS ORDERED: ESCITALOPRAM OXALATE 20 MG TAB PO SCH (09:00)
[2023-01-07] MEDS: NICOTINE 14 MG/24 HR PATCH TD SCH (09:14)
[2023-01-07] MEDS: CHECK fentaNYL PATCH PLACEMENT SCH (09:16)
[2023-01-07] MEDS: ACETAMINOPHEN 325 MG TAB PO PRN (09:18)
[2023-01-07] MEDS ORDERED: oxyCODONE/ACETAMINOPHEN 5mg/325mg TAB PO PRN (09:23)
--- NOTE | 2023-01-07 13:02 | Palliative Care Consultation ---
Date of Consultation January 07, 2023 Assessment & Plan (1) Cancer related pain: Although natural opioid analogues are devoid of repolarization effects, synthetic agents may be proarrhythmic. Acute opioid receptormediated cardiovascular effects include hypotension, orthostasis, syncope, and bradycardia and opioid-receptor modulation is increasingly recognized to affect the cardiovascular system because endogenous opioid peptides, including endorphins, enkephalins, and dynorphins, are also present in the human heart. Outside the central nervous system, opioid receptor functions include the modulation of heart rate, inotropic state, vascular function, and cellular adaptation to ischemic injury. These issues seem more prevalent with synthetics over natural opioids. (Bebeto MJ, En RB, Itz REID. Cardiovascular Complications of Opioid Use: [facility] Vkloh-uz-svt-Art Review. J Am Wilson Cardiol. 2020;77(2):205-223. 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 I offered a transition to MS Contin or OxyContin but he declined and states he wants to see how he does on his 50% dose reduced TDF now at 12mcg. * I have ordered new 12mcg patches from his local pharmacy and e scribed it. Dr Young is aware this med does not need to be ordered at ca. * Low threshold for opioid rotation if arrhythmia persists * Strongly recommend home sleep study. if he is not being dc today, then I suggest an overnight noc ox as well, he may be intolerant of CPAP with his claustrophobia * Ward will see me in OP clinic follow up within the next 3-4 weeks, will try to match to his oncology appt * Await renal biopsy reschedule TS 65min Thank you for allowing us to participate in the ongoing care of this patient. Please don't hesitate to call or page with any additional concerns. Dr. Pili Diaz DNP Director, Palliative Care History of Present Illness Reason for Consultation: continuity of care, est outpatient pall med clinic Attending Physician: Rashawn Young MD History of Present Illness Ward was here for renal biopsy, positioned onto left lateral and remained so for approx 30min, he states this is not a position he tolerates well in general. it was noted after sometime that his HR dropped and he was getting bradycardic, ultimately brought to ED and admitted. General consensus was that fentanyl caused his bradycardia. Ward is known to me from OP clinic, where I first met him 01/01/23. He has Stage IIIc SCC lung dx 05/13/2022 - , Stage T4N3Mo and has been on chemoradiation with carboplatin and paclitaxel. In November 2022, his PET-CT revealed increase in size and number of left lung nodules c/w mets, a new FDG avid left adrenal mass c/w mets abd two left renal FDG avid masses c/w mets. There was some mild FDG updtake in LN windows, suggesting jackie spread. When he came to see me, he had already been started on TDF 25mcg and Percocet 5/325mg 4 times a day for BTP about a week or so before meeting me, this was from another provider. He was also open about being an active smoker, currently 1 PPD/ in past been as high as 5 PPD. 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 He was struggling with pain that is sharp, steady and lies between the left lower rib to hip region, occasionally radiating around him. he was struggling with constipation which has improved/normalized since we moved him to a daily Senna S routine. His appetite is still decreased and he remains reluctant to try any supplements or make his own shakes. sleeping ok - states it has been very good for past 2 days; goes to bed 11pm, wakes 7am. sometimes naps in daytime x 2-3 hr. ++snoring. sometimes gasping with sleep per signif other, Sade. he states he wakes up 2x in night for uri nation. Allergies Allergy/AdvReac Type Severity Reaction Status Date / Time No Known Allergies Allergy Verified 12/09/22 20:44 Home Medications Medication Instructions Recorded Confirmed Type albuterol sulfate 90 mcg/actuation 2 puff inhalation Q6H PRN 07/08/22 01/06/23 History aerosol inhaler Shortness Of Breath Or Wheezing escitalopram oxalate 20 mg tablet 20 mg PO DAILY 07/08/22 01/06/23 History (Lexapro) fluticasone fur. 100 mcg-umeclid 1 inh inhalation DAILY 07/08/22 01/06/23 History 62.5 mcg-vilant 25 mcg inhalat.powder (Trelegy Ellipta) tamsulosin 0.4 mg capsule (Flomax) 0.4 mg PO DAILY 07/08/22 01/06/23 History aspirin 81 mg tablet,delayed 81 mg PO DAILY 12/09/22 01/06/23 History release atorvastatin 40 mg tablet 40 mg PO QAM 12/09/22 01/06/23 History oxycodone-acetaminophen 5 mg-325 1 tab PO Q6H PRN pain #14 tabs 12/09/22 01/06/23 Rx mg tablet (Percocet) sildenafil 50 mg tablet 50 mg PO DIRECTED PRN Erectile 12/09/22 01/06/23 History Dysfunction fentanyl 12 mcg/hr transdermal 1 patch transdermal Q72H severe 01/07/23 Rx patch cancer pain 1 month #10 ea Patient History Medical History COPD (chronic obstructive pulmonary disease) COVID-19 Elevated cholesterol Emphysema/COPD Lung cancer Surgical History Hx of appendectomy 1968 Family History Mother Alzheimer disease Diabetes Father Lung disease Emphysema and black lung Social History Smoking Status: Current every day smoker Tobacco Type: Cigarettes Age Started Using Tobacco: 13; packs per day: 5; Cigarettes Per Day: 10-20; Second Hand Exposure: Yes; Hx Alcohol Use: Yes Alcohol type: beer Alcohol Intake Frequency: 4 or More x per/Week Alcohol Intake Frequency Comment: each evening Hx Substance Use: No Preferred Language: [place] Communication Ability: Effective Visual Impairment: Partially Limited Hearing Ability: Normal Finisher Wallboard And Plasterboard Required: No Beliefs That Will Affect Care: None Current Living Situation: Significant Other Current Living Situation Comment: has a home in [place], will be staying with SO during treatment 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 occupational status: 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 Feels Safe at Home: Yes caffeine: Yes during the past year weight has: remained stable Dental Care, Regularly: No Assistive Devices: Cane Review of Systems Review of Systems: All systems reviewed & are unremarkable except as noted in Subjective Physical Exam Physical Exam: Seated at edge of bed, eating lunch, NAD AAOx3 no resp distress no JVD, HR 72 abd soft, non tender [place] Skin warm Results & Data Vital Signs (Past 12 Hours) Vital Signs Temp Pulse Pulse Resp BP BP Pulse Ox 01/07/23 12:28 36.8 C 66 18 134/70 97 01/07/23 09:21 01/07/23 08:00 36.8 C 66 18 159/58 H 97 01/07/23 07:19 65 01/07/23 03:02 37.0 C 69 20 134/70 95 O2 Del Method 01/07/23 12:28 01/07/23 09:21 Room Air 01/07/23 08:00 Room Air 01/07/23 07:19 01/07/23 03:02 Room Air Laboratory Results data reviewed Diagnostic Findings data reviewed PG Care Time/CCT Total # of Minutes Spent Total Time Spent: 65 Total Time Spent with Patient: Total time spent is greater than 50% in coordination of care (as documented) at patient's floor/unit and/or counseling patient: [place] [address] IN/OBS CONSULT LVL 5,80M Patient Type New History Comprehensive Exam Comprehensive Medical Decision Making High Complexity Diagnoses Cancer related pain G89.3 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
--- NOTE | 2023-01-07 15:18 | Discharge Summary ---
Date of Service January 07, 2023 Admission HPI Per Admitting Provider Mr. Harrison is a 67 year old male that presents to the [facility] ED from IR where he was planned to undergo a renal biopsy of his left kidney for a recently identified mass on his PET scan from the end of November. While in IR, he was incidentally found to be bradycardic in the 40-50 range, completely asymptomatic. 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 Initial PET scan was 05/05/2022 with concerns for malignancy. 05/22/2022: Dr. Thorne provided staging: T4 N3 M0. Stage IIIC. He originally received weekly paclitaxil and carboplatin + radiation and then continued with maintenance durvalumab until two weeks ago. Follows with Dr. Mccoy and Dr. Ochoa. Has responded well to durvalumab; however, this has been on hold for past two weeks due to recent PET results with disease progression. Per review of outpatient records; patient not a good candidate for surgery. Future treatment option plans were to be held at upcoming appointment in coming weeks. He had a brain MRI 05/28/22 negative for metastatic disease. Patient did see Palliative Medicine on 05/03/23. No leukocytosis, Mg+1.6; replace with 1 g in ED. does not appear toxic. Lyme negative, procalcitonin negative, troponin negative. No signs of anemia or active bleeding. Normotensive. Lengthy conversation today held with patient regarding how his emotional state is and if he has had any time to reflect on previous palliative conversations. He said he keeps feeling like he is in and out of the hospital and just wants to 'let things ride' how they are supposed to. We had a lengthy conversation about his code status, especially given the light of his current presentation with bradycardia. He said he would not like to be resuscitated in the event of cardiac or respiratory arrest. He is receptive to ACLS medications and is receptive to having Cardiology insight regarding causes and if there are any treatments. He is eager to continue with treatment so do not think patient is ready for Hospice at this time, but he is receptive to further palliative medicine conversations throughout his admission. Patient certainly would qualify for hospice under the diagnosis of Lung Cancer. Pt willing to rule out any organic causes; but do suspect related to pain medications; as patient was opioid naive prior to two weeks ago; will reduce Fentanyl dosing to 12 mcg TD for re-evaluation and affect on HR; of course being mindful of pain level. Current pain level 1/10, which increased in his left flank during ambulation to the bathroom to 4/10. Pt denies EDWARDS, SOB, chest pain, palpitations, N/V/D, urine or bowel changes, recent falls or trauma. Reports poor appetite which is unchanged. Pt sitting in his hospital bed AAOx4 with his at bedside in no apparent distress; he is able to speak in complete sentences on RA. SB on monitor with PAC's. Abdomen S/NT/ND. Euvolemic on exam. Incidental finding HR 40-50. Asymptomatic; Suspect related to starting Fentanyl and Percocet a few weeks ago and previously opioid-naive. ECG: SB; will repeat ECG to rule out any AVB. Confirmed Conditional Code; ok with ACLS drugs and cardioversion. ECHO ordered. Cardiology and continuation of Palliative Medicine consult. Pt will be admitted for further evaluation and management. Please see A/P for further details. Admission Exam Per Admitting Provider Neuro: AAOx4, PERRLA, no aphagia, memory changes, CNII-XII grossly intact HEENT: head normocephalic, moist mucus membranes CV: S1/S2, (-) M/G/R, (-) edema, cap refill < 3 seconds Resp: Lungs CTA in all rogers. On RA GI: Abdomen S/NT/ND, Ax4 bowel sounds, (-) CVA tenderness Musculoskeletal: 5/5 B/L UE strength, 5/5 B/L LE strength. No gait disturbance Skin: (-) rashes , (-) erythema. Psych: euthymic mood Principal Diagnosis Sinus bradycardia Discharge Data Allergies Allergy/AdvReac Type Severity Reaction Status Date / Time No Known Allergies Allergy Verified 12/09/22 20:44 Consultations 01/06/23 10:50 ED Decision to Admit Stat 01/06/23 12:00 Consult Cardiology Routine 01/06/23 14:00 Consult Palliative Care Routine Hospital Course (1) Bradycardia: (2) Hypomagnesemia: (3) Stage III squamous cell carcinoma of lung: (4) COPD (chronic obstructive pulmonary disease): (5) Advanced care planning/counseling discussion: Plan 67 y/o M presents from where he was planned to undergo a renal biopsy of his L kidney for a recently identified mass on his PET scan from the end of November. Incidentally found to be kwadwo in the 40-50 range. Patient admitted to medical floor for observation. He was placed on telemetry. Echocardiogram was done which showed EF of 55%; no significant valvular abnormality. No pauses or asystole seen in telemetry. He did not have any syncopal episodes. His bradycardia was thought secondary to fentanyl. Discussion done with palliative care; fentanyl dose decreased and new prescription was sent. Patient to follow-up with PCP after discharge. No current cardiac finding would episode probably preclude renal biopsy as per cardiology. Total Time Total Time Spent Total Time Spent (In Minutes): 45 Total Time Includes: Examination of the Patient, Discharge Planning, Medication Reconciliation, Communication With Other Providers and Other Discharge Plan Discharge Items Patient Disposition: Home - Self-Care Reason For Visit: BRADYCARDIA Discharge Diagnosis: Sinus bradycardia Activity: Resume your previous activity Non-emergency contact: Primary Care Provider Call non-emergency contact if: you have any medication questions and your symptoms worsen Follow-up/Referrals: Larissa Aparicio MD [Primary Care Provider] - (Date & Time 01/13/2023 11:20 AM Provider Andrey Regan MD Department Family Medicine [facility] ) Diet: Regular Addtl Attending Provider Instructions: You were admitted to the hospital with low heart rate. During the hospitalization you underwent echocardiogram to check on your heart function. Your heart function is normal with ejection fraction of 55 to 60%. The equipment monitor phototypesetting during the hospitalization did not show any significant pauses. The likely cause for the low heart rate could be fentanyl. Please discuss with your oncologist regarding lowering the dose. As per cardiology, there is no current cardiac findings that would absolutely preclude renal biopsy. Pending Studies at Discharge: No Stand-Alone Forms: My [employer], Smoking Cessation Medications and DC Order Prescriptions: Continued escitalopram oxalate [Lexapro] 20 mg tablet 20 mg PO DAILY tamsulosin [Flomax] 0.4 mg capsule 0.4 mg PO DAILY Trelegy Ellipta 100-62.5-25 mcg blister with device 1 inh inhalation DAILY albuterol sulfate 90 mcg/actuation HFA aerosol inhaler 2 puff inhalation Q6H PRN (Reason: Shortness Of Breath Or Wheezing) atorvastatin 40 mg tablet 40 mg PO QAM aspirin 81 mg Tablet,Delayed Release (Dr/Ec) 81 mg PO DAILY sildenafil 50 mg tablet 50 mg PO DIRECTED PRN (Reason: Erectile Dysfunction) oxycodone-acetaminophen [Percocet] 5-325 mg tablet 1 tab PO Q6H PRN (Reason: pain) Qty: 14 0RF No Action fentanyl 12 mcg/hr patch 72 hour 1 patch transdermal Q72H MDD 12mcg patch 30 Days Qty: 10 0RF Discharge Orders: Discharge Order (Routine); Ordered 01/07/23 Ordered By: Rashawn Young Admission Data Admit Date/Time: 01/06/23 11:12 Attending Provider: Rashawn Young Admit Provider: Danielle Mortensen Primary Care Provider: Larissa Aparicio Other Providers: Danielle Mortensen ; Letitia Collazo Other Interventions: Discharge Summary Assessment (RN) Last Done: 01/07/23 12:28
--- NOTE | 2023-01-09 16:35 | Communication Note ---
Date of Service: January 09, 2023 Code 44 attestation: The chart of Robinson Harrison 1955 reviewed and found that he was appropriately managed for his presenting symptoms bradycardia and he was evaluated by environmental law professor in the attending physician. He he was discharged from the hospital in a stable medical condition. By [facility] guidelines, a determination that the admission or continued stay is not medically necessary has been made by a member of the UR committee and a physician for this hospital stay, therefore a Code 44 will be completed and the Inpatient admission will be changed to outpatient. DR Alisha Bartlett Member UR Committee
== END 2023-01-07 12:43 | disposition home or self-care (01) | DRG 309 ==
LOC: ED 08:44 → SUATTDRO 11:12 → 2E 11:12